=== PATIENT | male | born 1990 | race Caucasian/White ===

== ENCOUNTER 2019-10-11 09:40 | Emergency (ER) | payer SELFPAY ==
[~2019-10-11] VITALS: Ht 180.3 cm; Wt 73.9 kg
--- OUTSIDE RECORDS SUMMARY | ~2019-10-11 | XMS | Clinical Summary ---
Demographics + + + | Address | [address] | | | [place] [address] | + + + | Home Phone | | + + + | Preferred Language | Unknown | + + + | Marital Status | Single | + + + | Sikhism Affiliation | Unknown | + + + | Race | White | + + + | Ethnic Group | Unknown | + + + Author + + + | Author | [facility] | | | and [place] | + + + | Organization | [facility] | | | and [place] | + + + | Address | Unknown | + + + | Phone | Unavailable | + + + Support + + +---------+ + | Name | Relationship | Address | Phone | + + +---------+ + | Esme Canas | ECON | Unknown | | + + +---------+ + Care Team Providers + +------+ + | Care Analytical Lead Name | Role | Phone | + +------+ + PCP | Unavailable | + +------+ + Allergies No Known Allergies Medications + + + +---------+------+------+-------+ | Medication | Sig | Dispensed | Refills | Star | End | Statu | | | | | | t | Date | s | | | | | | Date | | | + + + +---------+------+------+-------+ | Pediatric Multiple | Take 1 tablet by | | 0 | 10/21 | | Activ | | Vit-C-FA (FRUITY | mouth once daily | | | 06/09 | | e | | CHEWABLES | | | | 12 | | | | MULTIVITAMIN) CHEW | | | | | | | + + + +---------+------+------+-------+ | polyethylene | Take as directed | | 0 | 09/1 | | Activ | | glycol (MIRALAX) | once a day | | | 4/20 | | e | | powder | | | | 12 | | | + + + +---------+------+------+-------+ | OMEPRAZOLE PO | CPDR--Take as | | 0 | 09/1 | | Activ | | | directed | | | 4/20 | | e | | | | | | 12 | | | + + + +---------+------+------+-------+ Active Problems + + + | Problem | Noted Date | + + + | COLITIS | | + + + | GASTROESOPHAGEAL REFLUX DISEASE | | + + + Social History + +-------+ +--------+------+ | Tobacco Use | Types | Packs/Day | Years | Date | | | | | Used | | + +-------+ +--------+------+ | Never Smoker | | | | | + +-------+ +--------+------+ + + + | Sex Assigned at | Date Recorded | | | | + + + | Not on file | | + + + Last Filed Vital Signs + + + + + | Vital Sign | Reading | Time Taken | Comments | + + + + + | Blood Pressure | 90/64 | 01/28/2011 12:00 AM | | | | | PST | | + + + + + | Pulse | - | - | | + + + + + | Temperature | - | - | | + + + + + | Respiratory Rate | - | - | | + + + + + | Oxygen Saturation | - | - | | + + + + + | Inhaled Oxygen | - | - | | | Concentration | | | | + + + + + | Weight | 82.1 kg (181 lb) | 01/28/2011 12:00 AM | | | | | PST | | + + + + + | Height | 180.3 cm (5' 11") | 01/10/2011 12:00 AM | | | | | PST | | + + + + + | Body Mass Index | 25.24 | 01/10/2011 12:00 AM | | | | | PST | | + + + + + Plan of Treatment + + +-------+ + | Health Maintenance | Due Date | Last | Comments | | | | Done | | + + +-------+ + | Vaccine: | 12/15/200 | | | | Dtap/Tdap/Td (1 - | 7 | | | | Tdap) | | | | + + +-------+ + | Vaccine: Influenza | | | | | (#1) | 0 | | | + + +-------+ + Results Not on filefrom Last 3 Months
--- OUTSIDE RECORDS SUMMARY | ~2019-10-11 | XMS | Encounter Summary ---
Demographics + + + | Address | [address] | | | [place] [address] | + + + | Home Phone | | + + + | Preferred Language | Unknown | + + + | Marital Status | Single | + + + | Taoist Affiliation | Unknown | + + + | Race | White | + + + | Ethnic Group | Unknown | + + + Author + + + | Author | [facility] | | | and [place] | + + + | Organization | [facility] | | | and [...] Team Providers + +------+ + | Care Wireline Supervisor Name | Role | Phone | + +------+ + PCP | Unavailable | + +------+ + Encounter Details +--------+ + + + + | Date | Type | Department | Care Team | Description | +--------+ + + + + | 03/03/ | [facility] | [facility] | Glen Nava MD | | | 2011 | Encounter | MED CTR XRAY [address] | | | | | [place] | [address] | | | | | [place] [address] | [id number] | | | | | [phone] | | | +--------+ + + + + Social History + +-------+ +--------+------+ | Tobacco Use | Types | Packs/Day | Years | Date | | | | | Used | | + +-------+ +--------+------+ | Never Assessed | | | | | + +-------+ +--------+------+ + + + | Sex Assigned at | Date Recorded | | | | + + + | Not on file | | + + + documented as of this encounter Plan of Treatment Not on filedocumented as of this encounter Procedures + +--------+ + + + | Procedure Name | Priori | Date/Time | Associated Diagnosis | Comments | | | ty | | | | + +--------+ + + + | NM GASTRIC EMPTYING | | 03/03/2011 | | Results for this | | | | 11:48 AM | | procedure are in the | | | | PST | | results section. | + +--------+ + + + documented in this encounter Results NM Gastric Emptying (03/03/2011 11:48 AM PST) + + | Specimen | + + | | + + + + + | Narrative | Performed At | + + + | [facility] Diagnostic Imaging Department | [facility] | | [address] [facility] | [facility] | | GASTRIC EMPTYIN03/03/2011 | DIAG IMG | | CLINICAL HISTORY: VOMITING AND ABDOMINAL PAIN. QUESTION | | | GASTROPARESIS. COMPARISON: None. TECHNIQUE: | | | Anterior imaging is performed over the course of approximately 90 | | | minutes following the o ral ingestion of 1.0 mCi of technetium 99m | | | sulfur colloid in one egg. Time activity curves are calcu lated. | | | Emptying begin time is 0 minutes. Calculated T-1/2 is 58 | | | minutes. Emptying percent at the end of im aging is 73%. There is | | | visible gastric emptying and propagation through the bowel. | | | IMPRESSION: NORMAL GASTRIC EMPTYING STUDY. Dictated Date/Time: | | | 03/03/2011 14:28 Transcribed Date/Time: 03/03/2011 15:39 | | | Inhalation Therapy Teacher: <Electronically Signed by Glen Razo, | | | MD> 03/03/11 [id number] | | + + + + + | Procedure Note | + + | Ovidio, Rad Conversion - 03/29/2013 4:33 PM [facility] | | Diagnostic Imaging Department [address] [facility] | | GASTRIC EMPTYIN03/03/2011 CLINICAL HISTORY: | | VOMITING AND ABDOMINAL PAIN. QUESTION GASTROPARESIS. COMPARISON: None. TECHNIQUE: | | Anterior imaging is performed over the course of approximately 90 minutes following | | the oral ingestion of 1.0 mCi of technetium 99m sulfur colloid in one egg. Time | | activity curves are calculated. Emptying begin time is 0 minutes. Calculated T-1/2 is | | 58 minutes. Emptying percent at the end of imaging is 73%. There is visible gastric | | emptying and propagation through the bowel. IMPRESSION: NORMAL GASTRIC EMPTYING STUDY. | | Dictated Date/Time: 03/03/2011 14:28Transcribed Date/Time: 03/03/2011 | | 15:39Transcriptionist: <Electronically Signed by Glen Razo MD> 03/03/11 | | [id number] | |TECHNIQUE: Anterior imaging is performed over the course of approximately 90 minutes follo wing the o | |ral ingestion of 1.0 mCi of technetium 99m sulfur colloid in one egg. Time activity curves are calcu | |lated. | | | |Emptying begin time is 0 minutes. Calculated T-1/2 is 58 minutes. Emptying percent at the end of im | |aging is 73%. There is visible gastric emptying and propagation through the bowel. | | | |IMPRESSION: NORMAL GASTRIC EMPTYING STUDY. | | | |Dictated Date/Time: 03/03/2011 14:28 | |Transcribed Date/Time: 03/03/2011 15:39 | |Inhalation Therapy Teacher: | |<Electronically Signed by Glen Razo MD> 03/03/11 1728 | + + + +---------+ + + | Performing | Address | City/State/Zipcode | Phone Number | | Organization | | | | + +---------+ + + | [place] | | | | | [place] | | | | + +---------+ + + documented in this encounter Visit Diagnoses Not on filedocumented in this encounter"
--- OUTSIDE RECORDS SUMMARY | ~2019-10-11 | XMS | Encounter Summary ---
Demographics + + + | Address | [address] | | | [place] [address] | + + + | Home Phone | | + + + | Preferred Language | Unknown | + + + | Marital Status | Single | + + + | Baptist Affiliation | Unknown | + + + | Race | White | + + + | Ethnic Group | Unknown | + + + Author + + + | Author | [facility] | | | and [place] | + + + | Organization | [facility] | | | and [...] Team Providers + +------+ + | Care Dental Equipment Installer And Servicer Name | Role | Phone | + +------+ + PCP | Unavailable | + +------+ + Encounter Details +--------+ + + + + | Date | Type | Department | Care Team | Description | +--------+ + + + + | 11/02/ | Abstract | [facility] | DATA MIGRATION [facility] | | | 2011 | | Conversion Location | SR | | | | | [facility] | | | | | | [place], [place] | | | | | | [address] | | | | | | [phone] | | | +--------+ + + + [...] + + documented as of this encounter Last Filed Vital Signs + + + [...] | | + + + + + documented in this encounter Plan of Treatment Not on filedocumented as of this encounter Procedures + +--------+ + + + | Procedure Name | Priori | Date/Time | Associated Diagnosis | Comments | | | ty | | | | + +--------+ + + + | ENDOSCOPY, COLON, | Routin | 06/29/2010 | | Results for this | | DIAGNOSTIC | e | 12:00 AM | | procedure are in the | | | | PDT | | results section. | + +--------+ + + + documented in this encounter Results ENDOSCOPY, COLON, DIAGNOSTIC (06/29/2010 12:00 AM PDT) + + | Specimen | + + | | + + + + + | Narrative | Performed At | + + + | | | + + + documented in this encounter Visit Diagnoses Not on filedocumented in this encounter
[2019-10-11] MEDS ORDERED: ONDANSETRON ODT8 MG PO (11:48)
== END 2019-10-11 12:19 | disposition home or self-care (01) ==
LOC: ED 09:40
DX: R10.9 Unspecified abdominal pain (principal)
CPT/HCPCS: 74177; 80053; 81001; 83690; 85025; 96361; 99284-25; J1885; J7030; Q9967